=== PATIENT | male | born 1970 | race Two or more races ===

== ENCOUNTER → 2024-05-14 08:22 | Outpatient (CLI) | payer OTHER ==
[2024-05-14 10:25] LABS: HEMATOCRIT 46.3 % (39.0-48.0); HEMOGLOBIN 15.7 g/dL (13-16.00); MEAN CELL VOLUME 88.7 fL (80.0-100.00); MEAN CORPUSCULAR HEMOGLOBIN 30.1 pg (27.00-32.0); MEAN CORPUSCULAR HGB CONC 33.9 g/dl (32.0-36.0); PLATELET COUNT 202 K/uL (150-450); RED BLOOD COUNT 5.22 M/uL (4.00-6.00); RED CELL DISTRIBUTION WIDTH 12.6 % (11.5-14.5)
[2024-05-14 11:10] LABS: ALBUMIN 4.1 gm/dL (3.4-5.0); BILIRUBIN TOTAL 0.65 mg/dL (0.3-1.2); CALCIUM 8.9 mg/dL (8.5-10.1); CREATININE SERUM 0.78 mg/dL (0.70-1.30); FREE TRIODOTIRONINE 3.07 pg/ml (2.18-3.98); GFR 102.96; GLOBULINA 2.7 G/DL (2.4-3.5); POTASSIUM 4.18 mEq/L (3.5-5.1); T4 FREE 0.87 NG/ML (0.76-1.46); TOTAL PROTEIN 6.8 gm/dL (6.4-8.2); TSH 1.31 uIU/mL (0.358-3.74)
== END | disposition home or self-care (01) ==
LOC: LAB 08:22
DX: E03.8 Other specified hypothyroidism (principal); C18.7 Malignant neoplasm of sigmoid colon

== ENCOUNTER 2024-06-14 09:33 | Emergency (ER) | payer OTHER ==
[~2024-06-14] VITALS: Ht 172.7 cm; Wt 74.4 kg
[2024-06-14] MEDS ORDERED: TAMS0.4C PO ×2 (09:47→15:05)
[2024-06-14] MEDS ORDERED: FAMOtidine 10 MG/ML (4ML VIAL) IV ONE (11:00)
[2024-06-14] MEDS ORDERED: KETOROLAC TROMETHAMINE 60 MG VIAL IM ONE (11:00)
[2024-06-14 11:25] LABS: HEMATOCRIT 46.1 % (39.0-48.0); HEMOGLOBIN 15.9 g/dL (13-16.00); MEAN CELL VOLUME 89.4 fL (80.0-100.00); MEAN CORPUSCULAR HEMOGLOBIN 30.9 pg (27.00-32.0); MEAN CORPUSCULAR HGB CONC 34.6 g/dl (32.0-36.0); PLATELET COUNT 217 K/uL (150-450); RED BLOOD COUNT 5.15 M/uL (4.00-6.00)
[2024-06-14 11:50] LABS: ALBUMIN 4.3 gm/dL (3.4-5.0); BILIRUBIN TOTAL 0.82 mg/dL (0.3-1.2); CALCIUM 9.1 mg/dL (8.5-10.1); CREATININE SERUM 0.77 mg/dL (0.70-1.30); GFR 104.51; GLOBULINA 2.9 G/DL (2.4-3.5); POTASSIUM 4.02 mEq/L (3.5-5.1); TOTAL PROTEIN 7.2 gm/dL (6.4-8.2)
[2024-06-14] MEDS ORDERED: ZOFRAN8 MG PO (15:05)
[2024-06-14] MEDS ORDERED: PEPCID20 MG PO (15:05)
[2024-06-14] MEDS ORDERED: KETO10TA2 PO (15:05)
== END 2024-06-14 15:31 | disposition home or self-care (01) ==
LOC: ER 09:35
PROVIDERS: General Practice
DX: R10.13 Epigastric pain (principal); R10.9 Unspecified abdominal pain
CPT/HCPCS: 36415; 71045; 74177; 93005; Q9965

== ENCOUNTER → 2024-08-03 | Emergency (ER) | payer OTHER ==
[~2024-08-03] VITALS: Ht 172.7 cm; Wt 72.6 kg
[~2024-08-03] MED LIST: KETO10TA2 PO; LACTULOSE 20 G/30 ML BLIST.PACK ONE; LACTULOSE 20 G/30 ML BLIST.PACK PO STA; MAGNESIUM HYDROXIDE 30 ML BLIST.PACK PO ONE; MAGNESIUM HYDROXIDE 400 MG/5 ML ML PO STA; MINERAL OIL 30 ML BLIST.PACK ONE; MINERAL OIL 30 ML BLIST.PACK PO STA; PEPCID20 MG PO; TAMS0.4C PO; ZOFRAN8 MG PO
[2024-08-03 16:13] VITALS: BP 118/74; O2SAT 100
== END | disposition home or self-care (01) ==
LOC: ER 15:41
DX: K59.00 Constipation, unspecified (principal); N20.0 Calculus of kidney

== ENCOUNTER 2024-11-27 03:43 | Emergency (ER) | payer OTHER ==
[~2024-11-27] VITALS: Ht 172.7 cm; Wt 71.7 kg
[~2024-11-27 03:43] MED LIST changes: -LACTULOSE 20 G/30 ML BLIST.PACK ONE; -LACTULOSE 20 G/30 ML BLIST.PACK PO STA; -MAGNESIUM HYDROXIDE 30 ML BLIST.PACK PO ONE; -MAGNESIUM HYDROXIDE 400 MG/5 ML ML PO STA; -MINERAL OIL 30 ML BLIST.PACK ONE; -MINERAL OIL 30 ML BLIST.PACK PO STA
[2024-11-27] MEDS ORDERED: FAMOtidine 10 MG/ML (4ML VIAL) IV PUSH STA (04:57)
[2024-11-27] MEDS ORDERED: HYOSCYAMINE SULFATE 0.125 MG TAB.SUBL SL STA (04:57)
[2024-11-27] MEDS ORDERED: KETOROLAC TROMETHAMINE 30 MG VIAL IV STA (04:57)
[2024-11-27 05:33] LABS: BASO % 0.7 % (0.1-1.2); EOS # 0.07 (0.04-0.54); EOS % 0.8 % (0.7-7.0); HEMATOCRIT 43.7 % (40.1-51.0); HEMOGLOBIN 15.6 g/dL (13.7-17.5); LYMPH # 0.87 (1.18-3.74); LYMPH % 9.6 % (19.3-53.1); MEAN CORPUSCULAR HEMOGLOBIN 30.6 pg (25.6-32.2); MONO % 8.8 % (4.7-12.5); NEUT # 7.22 (1.56-6.13); NEUT % 79.8 % (34.0-71.1); PLATELET COUNT 222 K/uL (163-369); RED CELL DISTRIBUTION WIDTH 11.4 % (11.6-14.4)
[2024-11-27 05:43] LABS: INR 1.16; PARTIAL THROMBOPLASTIN TIME 26.5 SECONDS (22.0-34.0); PROTHROMBIN TIME 12.5 SECONDS (9.0-11.5)
[2024-11-27 05:51] LABS: BILIRUBIN TOTAL 0.73 mg/dL (0.3-1.2); CALCIUM 8.5 mg/dL (8.5-10.1); CREATININE SERUM 0.69 mg/dL (0.70-1.30); GFR 118.61; GLOBULINA 2.8 G/DL (2.4-3.5); POTASSIUM 3.97 mEq/L (3.5-5.1); TOTAL PROTEIN 6.8 gm/dL (6.4-8.2)
== END 2024-11-27 06:34 | disposition home or self-care (01) ==
LOC: ER 03:49
DX: K29.70 Gastritis, unspecified, without bleeding (principal); R10.9 Unspecified abdominal pain